=== PATIENT | female | born 1955 | race Caucasian/White ===

== ENCOUNTER → 2017-01-23 | Outpatient (CLI) | payer MEDICARE | LOC: BHSO 09:14 | DX: F33.41 Major depressive disorder, recurrent, in partial remission (principal) ==

== ENCOUNTER → 2017-04-16 | Outpatient (CLI) | payer MEDICARE | LOC: BHSO 14:38 | DX: F33.42 Major depressive disorder, recurrent, in full remission (principal) ==

== ENCOUNTER → 2017-07-19 | Outpatient (CLI) | payer MEDICARE | LOC: BHSO 14:53 | DX: F41.1 Generalized anxiety disorder (principal) ==

== ENCOUNTER 2017-08-31 13:15 | Outpatient (RCR) | payer MEDICARE | END 2017-10-24 14:55 | disposition home or self-care (01) | LOC: WSPT 13:15 | DX: M54.2 Cervicalgia (principal); M54.10 Radiculopathy, site unspecified | CPT/HCPCS: G0283-GP; G8981-GP; G8982-GP ==

== ENCOUNTER → 2017-10-09 | Outpatient (CLI) | payer MEDICARE | LOC: MHCPAIN 11:53 | DX: G89.29 Other chronic pain (principal); M47.22 Other spondylosis with radiculopathy, cervical region | CPT/HCPCS: G0463 ==

== ENCOUNTER → 2017-10-09 | Outpatient (CLI) | payer MEDICARE | LOC: BHSO 15:23 | DX: F33.1 Major depressive disorder, recurrent, moderate (principal) ==

== ENCOUNTER → 2017-11-15 | Outpatient (CLI) | payer MEDICARE | LOC: MHCPAIN 11:51 | DX: M50.122 Cervical disc disorder at C5-C6 level with radiculopathy (principal); M99.51 Intervertebral disc stenosis of neural canal of cervical region | CPT/HCPCS: J1100; J2250; J3010; Q9967 ==

== ENCOUNTER 2017-11-27 09:33 | Day surgery (SDC) | payer MEDICARE ==
[~2017-11-27] VITALS: Ht 165.1 cm; Wt 72.1 kg
[2017-11-27] MEDS ORDERED: DESYREL DIVIDO300 MG PO (10:29)
[2017-11-27] MEDS ORDERED: ABILIFY5 MG PO (10:29)
[2017-11-27] MEDS ORDERED: KLONOPIN 0.5MG0.5 MG PO (10:30)
[2017-11-27] MEDS ORDERED: CYMBALTA 60MG60 MG PO (10:30)
[2017-11-27] MEDS ORDERED: NEURONTIN300 MG/CAP PO (10:30)
[2017-11-27] MEDS ORDERED: ZANAFLEX 4MG TAB4 MG PO (10:31)
[2017-11-27 10:41] VITALS: BP 112/60; PULSE 91; TEMP 98
[2017-11-27 12:15] VITALS: BP 110/78; PULSE 78; TEMP 97
[2017-11-27 12:30] VITALS: BP 109/62; PULSE 70
[2017-11-27 12:45] VITALS: BP 115/50; PULSE 73
[2017-11-27] MEDS ORDERED: METAMUCIL3.4 GM/DOS PO (12:46)
== END 2017-11-27 13:00 | disposition home or self-care (01) ==
LOC: SDCO 09:33
DX: D12.8 Benign neoplasm of rectum (principal); K64.0 First degree hemorrhoids; K59.00 Constipation, unspecified; R15.9 Full incontinence of feces; G43.909 Migraine, unspecified, not intractable, without status migrainosus; F32.9 Major depressive disorder, single episode, unspecified; F41.9 Anxiety disorder, unspecified; K59.09 Other constipation; Z86.010 Personal history of colon polyps; Z90.710 Acquired absence of both cervix and uterus
CPT/HCPCS: OP; J2704; J7030

== ENCOUNTER → 2017-12-05 | Outpatient (CLI) | payer MEDICARE ==
[~2017-12-05] MED LIST: ABILIFY5 MG PO; CYMBALTA 60MG60 MG PO; DESYREL DIVIDO300 MG PO; KLONOPIN 0.5MG0.5 MG PO; METAMUCIL3.4 GM/DOS PO; NEURONTIN300 MG/CAP PO; ZANAFLEX 4MG TAB4 MG PO
== END ==
LOC: MHCPAIN 10:44
DX: G89.29 Other chronic pain (principal); M50.122 Cervical disc disorder at C5-C6 level with radiculopathy; R51 Headache
CPT/HCPCS: G0463

== ENCOUNTER → 2017-12-24 | Outpatient (CLI) | payer MEDICARE | LOC: MC.RAD 14:00 | DX: Z12.31 Encounter for screening mammogram for malignant neoplasm of breast (principal) ==

== ENCOUNTER → 2017-12-27 | Outpatient (CLI) | payer MEDICARE | LOC: BHSO 15:37 | DX: F33.41 Major depressive disorder, recurrent, in partial remission (principal) | CPT/HCPCS: G0463 ==

== ENCOUNTER → 2018-04-02 | Outpatient (CLI) | payer MEDICARE | LOC: BHSO 14:53 | DX: F33.41 Major depressive disorder, recurrent, in partial remission (principal) | CPT/HCPCS: G0463 ==

== ENCOUNTER 2018-04-16 09:25 | Day surgery (SDC) | payer MEDICARE ==
[~2018-04-16] VITALS: Ht 165.1 cm; Wt 66.5 kg
[2018-04-16 09:44] VITALS: BP 136/96; PULSE 88; TEMP 98.4
[2018-04-16] MEDS ORDERED: SYNTHROID 0.0.025 MG PO (09:48)
[2018-04-16] MEDS ORDERED: COLESTID 1GM1 G PO (10:37)
[2018-04-16 10:45] VITALS: BP 156/96; PULSE 84; TEMP 98
[2018-04-16 11:00] VITALS: BP 168/94; PULSE 78
[2018-04-16 11:15] VITALS: BP 174/97; PULSE 77
== END 2018-04-16 11:50 | disposition home or self-care (01) ==
LOC: SDCO 09:25
DX: K62.5 Hemorrhage of anus and rectum (principal); K64.0 First degree hemorrhoids; K62.89 Other specified diseases of anus and rectum; F32.9 Major depressive disorder, single episode, unspecified; J45.909 Unspecified asthma, uncomplicated; M79.7 Fibromyalgia; G43.909 Migraine, unspecified, not intractable, without status migrainosus; F41.9 Anxiety disorder, unspecified; Z88.2 Allergy status to sulfonamides; Z90.710 Acquired absence of both cervix and uterus; Z86.010 Personal history of colon polyps
CPT/HCPCS: OP; J2704; J7030

== ENCOUNTER → 2018-08-01 | Outpatient (CLI) | payer MEDICARE ==
[~2018-08-01] MED LIST changes: +COLESTID 1GM1 G PO; +SYNTHROID 0.0.025 MG PO
== END ==
LOC: BHSO 09:20
DX: F41.1 Generalized anxiety disorder (principal)
CPT/HCPCS: G0463

== ENCOUNTER → 2018-11-29 | Outpatient (CLI) | payer MEDICARE | LOC: BHSO 14:38 | DX: F41.1 Generalized anxiety disorder (principal) | CPT/HCPCS: G0463 ==

== ENCOUNTER → 2019-04-03 | Outpatient (CLI) | payer MEDICARE ==
[~2019-04-03] MED LIST changes: +CEPHALEXIN500 M1 PO; +LOFIBRA160 MG PO; +PLAQUENIL 200M200 MG PO; +WELLBUTRIN 75MG75 MG PO
== END ==
LOC: BHSO 13:56
DX: F33.41 Major depressive disorder, recurrent, in partial remission (principal)
CPT/HCPCS: G0463

== ENCOUNTER 2019-04-08 08:43 | Outpatient (CLI) | payer MEDICARE ==
[~2019-04-08] VITALS: Ht 165.1 cm; Wt 61.3 kg
[~2019-04-08 08:43] MED LIST changes: -CEPHALEXIN500 M1 PO; -LOFIBRA160 MG PO; -PLAQUENIL 200M200 MG PO; -WELLBUTRIN 75MG75 MG PO
[2019-04-08] MEDS ORDERED: WELLBUTRIN 75MG75 MG PO (09:15)
[2019-04-08] MEDS ORDERED: LOFIBRA160 MG PO (09:16)
[2019-04-08] MEDS ORDERED: PLAQUENIL 200M200 MG PO (09:17)
[2019-04-08] MEDS ORDERED: ZANAFLEX 4MG TAB4 MG PO (09:18)
[2019-04-08 09:36] VITALS: BP 119/68; PULSE 53; TEMP 98.2
[2019-04-08] MEDS ORDERED: CEPHALEXIN500 M1 PO (09:52)
--- NOTE | 2019-04-08 10:20 | NUR ---
Patient tolerated procedure well. All questions and concerns answered with patient and significant other. Manual pressure held for 5 minutes, dressed with steri strips and sterile 4 X 4s and paper tape. Incision education and device education completed. Bedside report given to MADELINE Pittman. Dressing clean, dry, and intact, no oozing or hematoma present. No pain per patient.
[2019-04-08 10:32] VITALS: BP 117/70; PULSE 55; TEMP 98.2
--- NOTE | 2019-04-08 10:33 | NUR ---
D/C INSTRUCTIONS REVIEWED WITH PT/SPOUSE. PT/SPOUSE VOICE UNDERSTANDING. AT HER SIDE. PT WAS DISCHARGED VIA AMBULATION WITH DISCHARGE INSTRUCTIONS AND LINQ EQUIPMENT IN HAND.
== END 2019-04-08 10:36 | disposition home or self-care (01) ==
LOC: COL.CAR 08:43
DX: R55 Syncope and collapse (principal); I10 Essential (primary) hypertension; E78.1 Pure hyperglyceridemia; M79.7 Fibromyalgia; G43.909 Migraine, unspecified, not intractable, without status migrainosus; M72.0 Palmar fascial fibromatosis [Dupuytren]; E03.9 Hypothyroidism, unspecified; Z90.710 Acquired absence of both cervix and uterus; Z88.2 Allergy status to sulfonamides; Z80.3 Family history of malignant neoplasm of breast; Z80.1 Family history of malignant neoplasm of trachea, bronchus and lung; Z82.61 Family history of arthritis; I47.1 Supraventricular tachycardia; Z91.030 Bee allergy status

== ENCOUNTER → 2019-07-03 | Outpatient (CLI) | payer MEDICARE ==
[~2019-07-03] MED LIST changes: +CEPHALEXIN500 M1 PO; +LOFIBRA160 MG PO; +PLAQUENIL 200M200 MG PO; +WELLBUTRIN 75MG75 MG PO
== END ==
LOC: BHSO 14:52
DX: F33.41 Major depressive disorder, recurrent, in partial remission (principal)
CPT/HCPCS: G0463

== ENCOUNTER → 2019-08-27 | Outpatient (CLI) | payer MEDICARE | LOC: BHSO 15:27 | DX: F33.1 Major depressive disorder, recurrent, moderate (principal) | CPT/HCPCS: G0463 ==

== ENCOUNTER → 2019-09-04 | Outpatient (CLI) | payer MEDICARE | LOC: MC.RAD 14:06 | DX: Z12.31 Encounter for screening mammogram for malignant neoplasm of breast (principal) ==

== ENCOUNTER → 2019-10-27 | Outpatient (CLI) | payer MEDICARE | LOC: BHSO 13:44 | DX: F33.42 Major depressive disorder, recurrent, in full remission (principal) | CPT/HCPCS: G0463 ==

== ENCOUNTER → 2020-04-22 | Outpatient (CLI) | payer MEDICARE | LOC: BHSO 13:59 | DX: F33.42 Major depressive disorder, recurrent, in full remission (principal) | CPT/HCPCS: G0463 ==

== ENCOUNTER → 2021-08-05 | Outpatient (CLI) | payer MEDICARE | LOC: COL.RAD 13:10 | DX: N30.20 Other chronic cystitis without hematuria (principal); Z87.440 Personal history of urinary (tract) infections ==

== ENCOUNTER 2022-12-27 07:41 | Day surgery (SDC) | payer MEDICARE ==
[~2022-12-27] VITALS: Ht 165.1 cm; Wt 64.5 kg
[2022-12-27 08:46] VITALS: BP 111/67; PULSE 77; TEMP 98.2
[2022-12-27] MEDS ORDERED: COZAAR 50MG50 MG/TAB PO (08:53)
[2022-12-27] MEDS ORDERED: ABILIFY5 MG PO (08:54)
[2022-12-27] MEDS ORDERED: AJOVY AUTO225 MG/1.5 SQ (08:55)
[2022-12-27] MEDS ORDERED: FIORINAL 325 MG1 CAP PO (08:55)
[2022-12-27 09:05] VITALS: BP 130/73; PULSE 75
--- NOTE | 2022-12-27 09:08 | NUR ---
SEE MERGE FOR ALL MEDICATION ADMINISTRATION TIMES/DOSAGES AND INTRA/POST PROCEDURE SEDATION ASSESSMENTS.
[2022-12-27] MEDS ORDERED: CEPHALEXIN500 M1 PO (09:22)
--- NOTE | 2022-12-27 09:35 | NUR ---
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 PT TAKES PEPSI, VISITS WITH , DR SOOD SPOKE WITH PT, MAY DISCHARGE WHEN READY.
--- NOTE | 2022-12-27 10:00 | NUR ---
REVIEWED DISCHARGE INST. WITH PT ON CARE OF SITE, FOLLOWUP AND NEW RX TO BE PICKED UP TODAY. PT SITS ON SIDE OF BED, INT DC'D INTACT AND PT DRESSED, DISCHARGED VIA W/C TO CAR WITH AT 1010
== END 2022-12-27 10:10 | disposition home or self-care (01) ==
LOC: COL.CAR 07:41
DX: Z45.09 Encounter for adjustment and management of other cardiac device (principal)
CPT/HCPCS: J0690; J2250; J3010; J7050